=== PATIENT | female | born 1985 | race Hispanic/Latino ===

== ENCOUNTER 2020-08-05 10:23 | Emergency (ER) | payer OTHER, SELFPAY ==
[2020-08-05 10:24] VITALS: BP 141/95; PULSE 96; RESP 16; TEMP 37.6; O2SAT 97; BMI 25.7
[2020-08-05 10:27] VITALS: BP 144/95; PULSE 96; RESP 17; TEMP 37.6; O2SAT 97
--- NOTE | 2020-08-05 10:36 | RAD_ITS ---
STUDY: X-RAY CHEST REASON FOR EXAM: Female, 34 years old. Shortness of breath TECHNIQUE: Single AP portable view of the chest. COMPARISON: None. FINDINGS: The lungs are clear and expanded. There is no demonstrated pleural abnormality. Normal size heart. Normal mediastinum and shanon. Normal visualized pulmonary arteries. Normal visualized aortic arch and descending thoracic aorta. Normal visualized thoracic spine. Normal visualized ribs, clavicles, and shoulders. There is no demonstrated abnormality of the visualized soft tissue structures of the upper abdomen. RAD/Chest 1 View (Portable) IMPRESSION: Normal x-ray examination of the chest. Electronically Signed: Jonnie Garcia MD at 11:36 EDT Tel , Service support ,
--- NOTE | 2020-08-05 10:36 | EKG12_ITS ---
Test Reason : CP Blood Pressure : / mmHG Vent. Rate : 097 BPM Atrial Rate : 097 BPM P-R Int : 148 ms QRS Dur : 086 ms QT Int : 340 ms P-R-T Axes : 047 004 020 degrees QTc Int : 431 ms Normal sinus rhythm Normal ECG Confirmed by VALENTÍN MEYERS, BREANA ([id number]), history professor NICK TRUONG ([id number]) on 08/08/2020 9:04:42 AM Referred By: ANA Confirmed By:EMILY LAURA MD
--- NOTE | 2020-08-05 10:38 | ED.VIS.GEN ---
History of Present Illness Chief Complaint: Chest Pain Narrative: Patient was diagnosed with Covid, her symptoms started about a week ago. She developed chest pain and shortness of breath in the past 2 days. Her fever started about 5 days ago. She still has some myalgias fever and generalized weakness. She has no nausea or vomiting or abdominal pain. She had some congestion although that is improved. Past medical history: None Medications: None Social history: She does admit to being exposed to multiple people with Covid Review of systems: All systems negative except as indicated General: Fever that seems to have improved Eyes: Denies: Visual changes - bilaterally ENT: Rhinorrhea and some sore throat that has improved Cardiovascular: Slightly pleuritic chest pain, does not radiate to her back. No tearing sensation Respiratory: Some exertional dyspnea and a dry cough Gastrointestinal: Denies: Abdominal pain, Nausea, Vomiting Genitourinary: Denies: Dysuria Musculoskeletal: Allergies that are improving Skin: Denies: Rash Neurological: Denies: Headache, no focal weakness Psych: Reports: negative Hematologic: Denies: Easy bruising, Easy bleeding Physical exam General: Patient appears relatively well she does appear anxious but she does not appear in significant distress she does not appear toxic Head: Normocephalic, Atraumatic Eyes: Conjunctiva not pale ENT: Moist mucous membranes. Normal voice Neck: Supple, Nontender, No lymphadenopathy Cardiovascular: Regular rate, Regular rhythm Respiratory: No distress, CTA bilaterally Abdomen: Soft, Nontender, Nondistended Back: Nontender, Normal Inspection. Negative for: CVA tenderness Extremities: Nontender, No edema. No calf pain Skin: Normal color, No rash Neurological: Alert, Normal Strength, Normal Sensation Psychological: Appears somewhat anxious Past Medical History - Allergies and Home Meds Allergies/Adverse Reactions: Allergies No Known Allergies Allergy (Verified 08/05/20 10:30) Smoking Status: Never smoker Physical Exam Vital Signs/Narrative: Vital Signs Temp Pulse Resp BP Pulse Ox 08/05/20 10:27 99.6 F H 96 17 144/95 H 97 08/05/20 10:24 99.6 F H 96 16 141/95 H 97 Diagnostic/Tx/Re-eval Chest X-Ray - ED: 1 View, Read by ED Physician, Read by Radiologist, Normal, Heart, Lungs, Mediastinum - Rhythm Strip Rhythm Strip: Sinus Rhythm Rate: 97 Ectopy: None - EKG Initial EKG Interpretation: - - Normal sinus rhythm with a rate of 97. Normal IL and QTc intervals. No ischemic changes. Interpreted by emergency doctor - Medical Decision Making Patient has an unremarkable emergency department work-up she is saturating well, there is no evidence of thromboembolic disease, there is no evidence of pneumonia on x-ray. She appears well. She does not meet criteria for monoclonal antibodies. She is discharged home, encouraged to get a pulse oximeter and return if she is worsening. ED Disposition - Plan for ED Patient: Disposition: Home or Assisted Living Diagnosis: COVID-19 Instructions: Coronavirus Disease 2019 (COVID-19): Overview Referrals: Austen Arriola MD [STAFF PHYSICIAN] - 2 Days
[2020-08-05 10:45] LABS: Absolute Lymphocyte Count 1.05 X10^3/uL (0.83-4.51); Absolute Neutrophil Count 2.9 X10^3/uL (2.0-7.7); Basophil# 0.01 X10^3/uL; Basophil% 0.2 % (0-1); Hematocrit 40.1 % (37-47); Lymphocyte # 1.05 X10^3/ul (0.83-4.51); Lymphocyte % 25.2 % (19-41); Mean Corp Hgb Conc 32.4 g/dL (32-36); Mean Corpuscular Volume 92.6 fL (81-99); Mean Platelet Vol. 10.3 fl (6.2-12.0); Monocyte# 0.25 X10^3/uL; NRBC Flagged by Analyzer 0 % (0-5); Neutrophil # 2.85 X10^3/uL (2.7-7.7); Neutrophil % 68.4 % (47-70); POSITIVE MORPHOLOGY YES; Platelet Count 234 K/mm3 (150-450); RBC Distribution Width CV 12.6 % (11.6-14.6); RBC Distribution Width SD 43.4 fl (35.1-43.9); Red Blood Count 4.33 M/mm3 (4.2-5.4); White Blood Count 4.2 K/mm3 (4.4-11.0)
[2020-08-05 10:53] LABS: Internal QC Validated? YES +Cl - CLEAR BKGD; Pregnancy, Serum, hCG Quali. NEGATIVE Negative
[2020-08-05] MEDS: Ketorolac 15 MG/ML Vial IV (10:53)
[2020-08-05 10:55] LABS: Differential Indicated SCAN CRITERIA MET
[2020-08-05 11:02] LABS: ALB/GLOB Ratio 0.8 RATIO (0.9-2.4); AST(SGOT) 33 U/L (15-37); Alanine Aminotransfer ALT/SGPT 34 U/L (13-56); Albumin, Serum 3.8 g/dL (3.2-5.0); Alkaline Phosphatase 78 U/L (45-117); Anion Gap 5 (5-15); BUN 7 mg/dL (7-18); BUN/Creat Ratio 8.3 RATIO (10-20); Calcium,Total 8.3 mg/dL (8.5-10.1); Chloride 102 mmol/L (98-107); Creatinine, Serum 0.84 mg/dL (0.55-1.02); EST Glomerular Filtration Rate 83 mL/min (>60); Est Glom Filt Rate - Afr Amer 100 mL/min (>60); Estimated Creatinine Clearance 89.18 ml/min; Globulin 4.5 g/dL (2.2-4.2); Glucose 97 mg/dL (74-106); Potassium 3.8 mmol/L (3.5-5.1); Protein, Total 8.3 g/dL (6.4-8.2); Sodium Level 134 mmol/L (136-145)
[2020-08-05 11:13] LABS: D-Dimer Quantitative (DVT/PE) <= 0.27 FEU/ug/m (0.27-0.49)
[2020-08-05 11:18] LABS: Differential Comment SCANNED
[2020-08-05 12:03] VITALS: BP 115/71; PULSE 78; RESP 18; O2SAT 97
== END 2020-08-05 12:05 | disposition home or self-care (01) ==
LOC: ED 12:00
PROVIDERS: Emergency Provider Emergency Medicine
DX: U07.1 COVID-19 (principal)
CPT/HCPCS: 71045; 80053; 84484; 84703; 85025; 85379; 93005; 96361; 96374; 99285; J7030

== ENCOUNTER → 2021-03-21 14:56 | Outpatient (CLI) | payer OTHER, SELFPAY | PROVIDERS: Visit Provider Family Medicine | DX: Z23 Encounter for immunization (principal) | CPT/HCPCS: 0004A; 91300 ==

== ENCOUNTER 2023-10-16 17:30 | Outpatient (RCR) | payer OTHER, SELFPAY ==
--- NOTE | 2023-09-26 16:18 | HP.PTEVAL_ITS ---
Patient's Visit Information Visit Information Visit Information: MARIBEL PRO is a 37 year old F referred to Physical Therapy by HASEEB LOO with a diagnosis of HIP PAIN ,OSTEOARTHRITIS. Date of Evaluation: 09/26/23 Physical Therapist: Scott Perez, PT, Cert MDT, OCS Visit Plan Frequency: 2x /Week Duration: 4 Weeks Plan: PT INSERTIONS STICK ROLL N/FOAM ROLL IT BAND ,MANUAL THERAPY STM/TRIGGER DEEP PSOAS MAJOR ,PIRIFORMIS ,ITBAND , STRETCHING HIP, STRENGTHENING HIP,DLS AND MODALTEIS PRN Subjective Subjective: This 37 y/o female presents to physical therapy with left hip. Patient has had back to glut to thigh and groin or several years ~ 3 years. Patient symptoms worse . Patient started working out symptoms worse . Today patient located left LS and groin pain. Patient does sitting at job and research . Aggravating factors intactive ,sitting . Alleviating ex's walking/standing . Patient has occasional paresthesia in leg. Bowel/bladder-. Coughing /sneezing -. Patient sleeping okay. Medication meloxicam .Patient condition affects QOL and function and housework tasks. Patient goals to decrease pain SOCIAL: VOCACTION: Research Pain Left Hip: Pain Intensity (Out of 10): 6 Pain Intensity Range: 10 Left Back: Pain Intensity (Out of 10): 6 Pain Intensity Range: 10 Objective Objective: POSTURE:mild forward posture PALPATION: tender poas major ,IT band ,piriformis NEURO: denies paresthesia/tingling ,reflexes L3-L4,L5-S1 ,L4-L5 2/3 LUMBAR ROM: flexion WFL ,extension min loss ,side glides min loss PROM: flexion 120 degrees groin pain ,IR 45 degrees, IR 65 degrees MMT: quads 4/5,hamstrings 4/5 ,IR/ER 4/5 ,( peak force) hip flexion 25.6 ,29.1 ,hip ext 30.1 SI JOINT: tender with MOBS Special Tests L/S Slump test left side: Negative L/S Slump test right side: Negative L/S Left Straight Leg Raise: Negative L/S Right Straight Leg Raise: Negative L Hip Scour: Positive L Hip BABAK - Intraarticular Pathology: Positive L Hip Elizabet - IT Band: Positive Balance/Special Test Scores Lower Extremity Functional Score: 47 Goals Goal 1:: Patient to be I with HEP Goal Time Frame: 4-6 Weeks Goal 2:: Patient to demonstrate 60% improvement with less pain and improved function. Goal Time Frame: 4-6 Weeks Goal 3:: Patient to improve peak force hip by 5-10# strength to improve function Goal Time Frame: 4-6 Weeks Goal 4:: Patient to improve ROM of hip without pain with activity and working out Goal Time Frame: 4-6 Weeks Goal 5:: Patient to improve LFES score by 5 -points or > to improve function and ADLS/working out Goal Time Frame: 4-6 Weeks Rehabilitation Potential Physical Therapy Diagnosis: This patient has right SI ,hip pain along with ITBAND tender weakness hip ,pain with scouring test and + SI dysfunction with poas ,tender ,piriformis and I T band thus recommend PT to decrease pain and improve strength Rehabilitation Potential: Good Anticipated Interventions Patient/Client Instruction: Educate patient on: Condition and Plan of Care For the Purpose of:: To decrease pain, To increase ROM, To improve muscle performance and motor function, To increase tolerance to activity/condition/position, To improve ability of physical actions for home/community/work/leisure, To improve gait and locomotor functions, To improve health of tissue, To decrease soft tissue restriction and To increase flexibility/ROM Therapeutic Exercise to Include: Strength training, Endurance training, Balance training, Postural training and Dynamic Lumbar Stabilization Comment: HIP For the Purpose of:: To decrease pain, To increase oxygenation perfusion, To improve ability to perform ADL's, To increase tolerance to activity/condition/position, To improve ability of physical actions for home/community/work/leisure, To improve health of tissue, To decrease soft tissue restriction, To increase flexibility/ROM and To prevent re-injury Manual Therapy Techniques to Include: Mobilization and Soft tissue mobilization Comment: STM For the Purpose of:: To decrease pain, To increase ROM, To improve nutrient delivery to tissue, To increase oxygenation perfusion, To improve health of tissue and To decrease soft tissue restriction TENS: Yes IF ES: Yes Cryotherapy (ice pack, ice massage): Yes Thermo therapy (hot pack): Yes Ultrasound (thermal/non thermal): Yes For the Purpose of:: To decrease pain, To increase ROM, To improve nutrient delivery to tissue, To increase oxygenation perfusion, To improve health of tissue and To decrease soft tissue restriction Text: Thank you for the opportunity to evaluate your patient. For Medicare and Medicare HMO plans, please review the plan of care and approve it. It will need to be FAXED BACK to us at [phone] for Medicare purposes. For Medicare only, by signing this I certify the plan of care. Please let me know if there are questions or concerns regarding this plan of care. Physician Signature: Date:
--- NOTE | 2023-10-16 18:18 | HP.PTDCSUM ---
Discharge Summary D/C summary: It has been my pleasure to treat MARIBEL PRO referred by HASEEB LOO, with the diagnosis of HIP PAIN ,OSTEOARTHRITIS for a total of 6 visit(s). Discharge Date: 10/16/23 Please see the following information for a summary of their discharge status. Subjective Subjective: Doing well Pain Left Hip: Pain Intensity (Out of 10): 0 Left Back: Pain Intensity (Out of 10): 0 Overall Improvement % Improvement: 100 Objective Objective/Function: POSTURE:mild forward posture PALPATION: tender poas major ,IT band ,piriformis NEURO: denies paresthesia/tingling ,reflexes L3-L4,L5-S1 ,L4-L5 2/3 LUMBAR ROM: flexion WFL ,extension WNL PROM: flexion 130 degreeS,IR 45 degrees, IR 65 degrees MMT: quads 4/5,hamstrings 4/5 ,IR/ER 4/5 ,( peak force) hip flexion 44.4 ,42.1 ,hip ext 30.1 SI JOINT: WFL Goals Goal 1:: Patient to be I with HEP Goal Progress: Goal Met Goal 2:: Patient to demonstrate 60% improvement with less pain and improved function. Goal Progress: Goal Met Goal 3:: Patient to improve peak force hip by 5-10# strength to improve function Goal Progress: Goal Met Goal 4:: Patient to improve ROM of hip without pain with activity and working out Goal 5:: Patient to improve LFES score by 5 -points or > to improve function and ADLS/working out Goal Progress: Goal Met Plan Plan: D/C D/C Information d/c sentence: If there are questions or concerns regarding this patient's physical therapy, please feel free to call me at [phone]. Thank you for the referral of this patient. Sincerely, Scott Perez, PT, Cert MDT, OCS Balance/Gait/Functional tests Balance/Special Test Scores Lower Extremity Functional Score: 76 Improvement % Improvement: 100
== END 2023-10-16 19:00 | disposition home or self-care (01) ==
LOC: PT 17:30
PROVIDERS: Referring Provider Nurse Practitioner Adult Health; Visit Provider Nurse Practitioner Adult Health
DX: M25.559 Pain in unspecified hip (principal); M19.90 Unspecified osteoarthritis, unspecified site
CPT/HCPCS: 97110; 97140; 97161

== ENCOUNTER → 2024-06-29 | Outpatient (CLI) | payer BC, SELFPAY ==
[2024-06-29 12:17] LABS: Absolute Lymphocyte Count 2.03 X10^3/uL (0.83-4.51); Absolute Neutrophil Count 3.2 X10^3/uL (2.0-7.7); Basophil# 0.02 X10^3/uL; Basophil% 0.3 % (0-1); Eosinophil# 0.09 X10^3/uL; Eosinophils% 1.5 % (0-5); Hematocrit 36.1 % (37-47); Hemoglobin 11.9 g/dL (12.0-15.0); Lymphocyte # 2.03 X10^3/ul (0.83-4.51); Lymphocyte % 34.7 % (19-41); Mean Corpuscular Hgb 29.9 pg (27.0-32.0); Mean Corpuscular Volume 90.7 fL (81-99); Monocyte# 0.51 X10^3/uL; Monocyte% 8.7 % (0-10); NRBC Flagged by Analyzer 0 % (0-5); Neutrophil # 3.18 X10^3/uL (2.7-7.7); Neutrophil % 54.5 % (47-70); Platelet Count 288 K/mm3 (150-450); RBC Distribution Width SD 42.7 fl (35.1-43.9); Red Blood Count 3.98 M/mm3 (4.2-5.4); White Blood Count 5.9 K/mm3 (4.4-11.0)
[2024-06-29 13:24] LABS: Hemoglobin A1c 5.5 % (<=5.6)
[2024-06-29 13:25] LABS: ALB/GLOB Ratio 1.3 RATIO (0.9-2.4); AST(SGOT) 21 U/L (<=31); Alanine Aminotransfer ALT/SGPT 26 U/L (<=34); Albumin, Serum 4.4 g/dL (3.5-5.0); Alkaline Phosphatase 75 U/L (35-104); Anion Gap 11 (5-15); BUN 13 mg/dL (4-19); BUN/Creat Ratio 19.7 RATIO (10-20); Calcium,Total 9.1 mg/dL (7.6-11.0); Carbon Dioxide 20.9 mmol/L (21.0-32.0); Chloride 103 mmol/L (98-108); Cholesterol 224 mg/dL (<=200); Creatinine, Serum 0.66 mg/dL (0.70-1.20); EST Glomerular Filtration Rate 116 (>60); Globulin 3.4 g/dL (2.2-4.2); Glucose 80 mg/dL (70-99); High Density Lipoprotein 43 mg/dL; Low Density Lipoprotein Calc. 136 mg/dL; Protein, Total 7.7 g/dL (5.9-8.4); Sodium Level 135 mmol/L (133-145); Triglycerides 230 mg/dL; Very Low Density Lipoprotein 46 mg/dL (5-40); cholesterol:hdl ratio screen 5.27
== END | disposition home or self-care (01) ==
LOC: VSLAB 10:21
PROVIDERS: PCP Family Medicine; Visit Provider Family Medicine
DX: Z13.1 Encounter for screening for diabetes mellitus (principal); Z13.6 Encounter for screening for cardiovascular disorders
CPT/HCPCS: 36415; 80053; 80061; 83036; 84443; 85025

== ENCOUNTER → 2024-08-05 | Outpatient (CLI) | payer BC, SELFPAY | END | disposition home or self-care (01) | LOC: LABSPEC 10:58 | PROVIDERS: PCP Family Medicine; Visit Provider Family Medicine | DX: Z01.419 Encounter for gynecological examination (general) (routine) without abnormal findings (principal) | CPT/HCPCS: 87624; 88175; G0145 ==